=== PATIENT | female | born 1965 | race Caucasian/White ===

== ENCOUNTER → 2022-12-25 14:01 | Outpatient (CLI) | payer OTHER, SELFPAY ==
--- NOTE | ~2022-12-25 | XR_ITS ---
PA, oblique, and lateral views of left index finger Clinical HISTORY: Pain FINDINGS: No fracture or dislocation seen.. There is minimal degenerative change at the second DIP saul int. Remaining joint spaces are intact. Soft tissues are unremarkable. IMPRESSION: No acute abnormality seen. Minimal degenerative change at the second DIP joint. Reviewed, dictated and finalized at [facility].
--- NOTE | ~2022-12-25 | XR_ITS ---
Left Hand Technique: PA, oblique, and lateral views were obtained. Clinical History: Index finger pain Findings: No acute fracture or dislocation is seen. Osseous alignment is anatomic. Joint spaces are p reserved. Soft tissues are unremarkable. Impression: Unremarkable left hand. Reviewed, dictated and finalized at location . Impression: Unremarkable left hand.
== END ==
DX: S60.459A Superficial foreign body of unspecified finger, initial encounter (principal); T14.90XA Injury, unspecified, initial encounter
CPT/HCPCS: 73130; 73140